=== PATIENT | male | born 1965 | race Caucasian/White ===

== ENCOUNTER 2019-01-07 13:27 | Emergency (ER) | payer BC, OTHER ==
[~2019-01-07] VITALS: Ht 188 cm; Wt 77.1 kg
[2019-01-07 13:27] VITALS: BP 146/95
[~2019-01-07 13:27] MED LIST: NEBI5TAB8 PO
--- NOTE | 2019-01-07 14:20 | NUR ---
SEEN AND EXAMINED BY DR. RAMOS.
== END 2019-01-07 15:14 | disposition home or self-care (01) ==
LOC: ER 13:29
DX: Z13.89 Encounter for screening for other disorder (principal); I10 Essential (primary) hypertension; G43.909 Migraine, unspecified, not intractable, without status migrainosus; Z60.2 Problems related to living alone